=== PATIENT | female | born 1955 | race Caucasian/White ===

== ENCOUNTER → 2016-12-03 | Outpatient (CLI) | payer OTHER | LOC: COL.RAD 08:12 | DX: R91.1 Solitary pulmonary nodule (principal); Z90.49 Acquired absence of other specified parts of digestive tract | CPT/HCPCS: Q9967 ==

== ENCOUNTER → 2017-11-25 | Outpatient (CLI) | payer OTHER | LOC: COL.RAD 08:05 | DX: J43.9 Emphysema, unspecified (principal); R91.8 Other nonspecific abnormal finding of lung field; Z90.49 Acquired absence of other specified parts of digestive tract | CPT/HCPCS: Q9967 ==

== ENCOUNTER 2018-06-13 09:22 | Day surgery (SDC) | payer OTHER ==
[~2018-06-13] VITALS: Ht 160 cm; Wt 88.4 kg
[2018-06-13 09:44] VITALS: BP 128/85; BP 140/100; PULSE 79; TEMP 97.7
[2018-06-13] MEDS ORDERED: ALEVE 220MG220 MG PO (09:54)
[2018-06-13] MEDS ORDERED: PRAVACHOL 40MG40 MG PO (09:54)
[2018-06-13 12:45] VITALS: BP 124/67; PULSE 73; TEMP 97.1
[2018-06-13 13:00] VITALS: BP 114/75; PULSE 69
[2018-06-13 13:15] VITALS: BP 117/78; PULSE 61
== END 2018-06-13 13:35 | disposition home or self-care (01) ==
LOC: SDCO 09:22
DX: Z12.11 Encounter for screening for malignant neoplasm of colon (principal); K62.1 Rectal polyp; K57.30 Diverticulosis of large intestine without perforation or abscess without bleeding; E78.00 Pure hypercholesterolemia, unspecified; Z90.49 Acquired absence of other specified parts of digestive tract
CPT/HCPCS: J2250; J3010; J7030

== ENCOUNTER → 2022-02-20 | Outpatient (CLI) | payer MEDICARE, OTHER ==
[~2022-02-20] MED LIST: ALEVE 220MG220 MG PO; PRAVACHOL 40MG40 MG PO
== END ==
LOC: COL.RAD 14:03
DX: Z12.2 Encounter for screening for malignant neoplasm of respiratory organs (principal); R91.1 Solitary pulmonary nodule; F17.210 Nicotine dependence, cigarettes, uncomplicated

== ENCOUNTER → 2022-10-24 | Outpatient (CLI) | payer MEDICARE, OTHER | LOC: COL.RAD 10-04 15:00 | DX: Z12.2 Encounter for screening for malignant neoplasm of respiratory organs (principal); J43.2 Centrilobular emphysema; J98.4 Other disorders of lung; Z87.891 Personal history of nicotine dependence ==

== ENCOUNTER → 2024-03-09 | Outpatient (CLI) | payer MEDICARE, OTHER | LOC: COL.RAD 12:32 | DX: Z12.2 Encounter for screening for malignant neoplasm of respiratory organs (principal); R91.1 Solitary pulmonary nodule; Z87.891 Personal history of nicotine dependence ==